=== PATIENT | male | born 1970 | race Hispanic/Latino ===

== ENCOUNTER 2022-07-25 19:59 | Emergency (ER) | payer BC ==
--- NOTE | 2022-07-25 23:00 | XRay Report ---
Abdomen single view INDICATION: Abdominal pain IMPRESSION: 10 x 5 cm gas-filled foreign body projects within the upper rectum. Signer Name: Grant Romo MD Signed: 07/25/2022 10:55 PM Workstation Name: [employer]
[2022-07-25 23:26] LABS: Basophils % (Auto) 0.6 % (0.0-1.8); Eosinophils # (Auto) 0.2 K/mm3 (0.0-0.4); Eosinophils % (Auto) 2.7 % (0.0-4.3); Hematocrit 47.7 % (35.5-45.6); Hemoglobin 16.1 gm/dl (11.8-15.2); Lymphocytes # (Auto) 1.3 K/mm3 (1.2-5.4); Lymphocytes % (Auto) 18.1 % (13.4-35.0); Mean Corpuscular HGB Conc 34 % (32-34); Mean Corpuscular Volume 87 fl (84-94); Monocytes # (Auto) 0.6 K/mm3 (0.0-0.8); Monocytes % (Auto) 8.9 % (0.0-7.3); Platelet Count 267 K/mm3 (140-440); Red Blood Count 5.47 M/mm3 (3.65-5.03); Red Cell Distribution Width 13.1 % (13.2-15.2)
[2022-07-25 23:32] LABS: BUN/Creatinine Ratio 12; Blood Urea Nitrogen 11 mg/dL (9-20); Calcium 9.7 mg/dL (8.4-10.2); Hemolysis Index 17
--- NOTE | 2022-07-26 07:13 | Emergency Department Report ---
HPI - General Chief Complaint: Rectal Pain Time Seen by Provider: 07/26/22 06:51 - HPI HPI: Room 19 The patient is a 51-year-old male present with chief complaint of foreign body in rectum. The patient states for the past 2 months he has had rectal bleeding bright red and dark red blood without rectal pain. The patient states 2 days ago he placed 2 or 3 tampon applicators in his rectum to "stop the bleeding." Patient states he's been unable to remove the applicators. Patient states his last bowel movement occurred 3 to 4 days ago. Patient states he normally has a bowel movement daily. Patient denies nausea vomiting. Patient states he has not used any laxatives ED Past Medical Hx - Past Medical History Previous Medical History?: Yes Hx GERD: Yes - Surgical History Past Surgical History?: Yes Additional Surgical History: left arm - Family History Family history: no significant - Social History Smoking Status: Never Smoker Substance Use Type: None (Denies illicit drug use) ED Review of Systems ROS: Stated complaint: RECTUM BLEEDING Other details as noted in HPI Constitutional: no symptoms reported Eyes: denies: eye pain ENT: denies: throat pain Respiratory: no symptoms reported Cardiovascular: denies: chest pain Endocrine: no symptoms reported Gastrointestinal: constipation. denies: nausea, vomiting Genitourinary: denies: dysuria Neurological: denies: headache Physical Exam - Physical Exam Vital Signs: Vital Signs 07/25/22 07/26/22 22:25 06:43 Temperature 98.3 F Pulse Rate 94 H Respiratory 18 18 Rate Blood Pressure 142/99 O2 Sat by Pulse 97 100 Oximetry Physical Exam: GENERAL: The patient is well-developed well-nourished male lying on stretcher not appearing to be in acute distress. [] HEENT: Normocephalic. Atraumatic. Extraocular motions are intact. Patient has moist mucous membranes. NECK: Supple. Trachea midline CHEST/LUNGS: Clear to auscultation. There is no respiratory distress noted. HEART/CARDIOVASCULAR: Regular. There is no tachycardia. There is no gallop rub or murmur. ABDOMEN: Abdomen is soft, with mild right upper quadrant and right lower quadran t discomfort to palpation. There is no rebound or guarding. Patient has normal bowel sounds. There is no abdominal distention. SKIN: There is no rash. There is no edema. There is no diaphoresis. NEURO: The patient is awake, alert, and oriented. The patient is cooperative. The patient has no focal neurologic deficits. The patient has normal speech MUSCULOSKELETAL: There is no evidence of acute injury. RECTAL: Foreign object palpated during ANGIE however I am unable to grab and remove it. ED Course Vital Signs 07/25/22 07/26/22 22:25 06:43 Temperature 98.3 F Pulse Rate 94 H Respiratory 18 18 Rate Blood Pressure 142/99 O2 Sat by Pulse 97 100 Oximetry - Consultations Consultation #1: 07/26/22 07:17 GI paged 07/26/22 07:36 Case discussed with single wire saw operator Dr. Naqvi-we will evaluate/call Endo team ED Medical Decision Making - Lab Data Result diagrams: 07/25/22 22:53 07/25/22 22:53 - Differential Diagnosis Foreign body in rectum Critical care attestation.: If time is entered above; I have spent that time in minutes in the direct care of this critically ill patient, excluding procedure time. ED Disposition Clinical Impression: Rectal foreign body Disposition: 01 HOME / SELF CARE / HOMELESS Is pt being admited?: No Does the pt Need Aspirin: No Condition: Stable Instructions: Rectal Foreign Body Removal, Care After Additional Instructions: Return to the emergency department should you develop worsening symptoms, inability to tolerate food or liquids, high fever or any other concerns Referrals: KATHERYN EAST MD [Primary Care Provider] - 3-5 Days Time of Disposition: 12:51
[2022-07-26] MEDS ORDERED: SODIUM CHLORIDE 0.9% 1000 ML 1,000 ML ONE (09:35)
[2022-07-26] MEDS ORDERED: MIDAZOLAM 2 MG/2 ML INJ ONE (09:35)
[2022-07-26] MEDS ORDERED: fentaNYL 100 MCG/2 ML INJ ONE (09:37)
[2022-07-26] MEDS ORDERED: EPINEPHrine 1 MG/10 ML SYRINGE ONE (09:46)
[2022-07-26] MEDS ORDERED: fentaNYL 100 MCG/2 ML INJ IV ONE (10:13)
[2022-07-26] MEDS ORDERED: MIDAZOLAM 2 MG/2 ML INJ IV ONE (10:13)
[2022-07-26] MEDS ORDERED: ONDANSETRON 4 MG/2 ML INJ ONE (10:34)
[2022-07-26] MEDS ORDERED: ONDANSETRON 4 MG/2 ML INJ IV ONE (10:36)
--- NOTE | 2022-07-26 11:21 | Gastroenterology Consultation ---
History of Present Illness - Reason for Consult Consult date: 07/26/22 foreign body in rectum Requesting physician: MAX PAGAN - History of Present Illness The patient is a 51 yo male who presented with foreign body in rectum. He reports hematochezia for a couple months and was given advice to use tampons to stop the bleeding. he inserted 2-3 tampons with applicators in rectum that has now been retained in rectum for a couple days. Mild lower abd discomfort/c ramping. ER unable to remove at bedside. Past History Past Medical History: No medical history Past Surgical History: No surgical history Social history: no significant social history Medications and Allergies Allergies Allergy/AdvReac Type Severity Reaction Status Date / Time hydromorphone [From Dilaudid] Allergy Shortness Verified 07/26/22 09:41 of Breath promethazine [From Phenergan] Allergy Shortness Verified 07/26/22 09:41 of Breath Active Meds: Reviewed/updated patient's home and current medications Review of Systems - Review of Systems All systems: negative (per HPI) Exam - Constitutional Vital Signs: Temp Pulse Resp BP Pulse Ox 98 F 82 16 146/92 98 07/26/22 10:00 07/26/22 10:00 07/26/22 10:00 07/26/22 10:00 07/26/22 10:00 General appearance: no acute distress - EENT Eyes: PERRL - Respiratory Respiratory effort: normal Respiratory: bilateral: CTA - Cardiovascular Rhythm: regular Heart Sounds: Present: S1 & S2 - Gastrointestinal General gastrointestinal: Present: soft, non-tender, non-distended - Neurologic Neurological: alert and oriented x3 - Psychiatric Psychiatric: appropriate mood/affect - Labs CBC & Chem 7: 07/25/22 22:53 07/25/22 22:53 Lab Results: Laboratory Results - last 24 hr 07/25/22 07/25/22 22:53 22:53 WBC 7.3 RBC 5.47 H Hgb 16.1 H Hct 47.7 H MCV 87 MCH 29 MCHC 34 RDW 13.1 L Plt Count 267 Lymph % (Auto) 18.1 [place] % (Auto) 8.9 H Eos % (Auto) 2.7 Baso % (Auto) 0.6 Lymph # (Auto) 1.3 [place] # (Auto) 0.6 Eos # (Auto) 0.2 Baso # (Auto) 0.0 Seg Neutrophils % 69.7 Seg Neutrophils # 5.1 Sodium 140 Potassium 4.0 Chloride 104.1 Carbon Dioxide 25 Anion Gap 15 BUN 11 Creatinine 0.9 Estimated GFR > 60 BUN/Creatinine Ratio 12 Glucose 112 H Calcium 9.7 - Imaging X-ray: report reviewed Assessment and Plan 1. Foreign body in rectum - will plan urgent bed side flex sig with foreign body removal
--- NOTE | 2022-07-26 11:27 | Operative Report ---
Operative Report Operative Report: Flexible Sigmoidoscopy with Foreign Body Removal Date of procedure: 07/26/2022 Endoscopist: Seb Naqvi Pre-op diagnosis/indication: Foreign body in rectum Post-op diagnosis: Same MEDICATIONS: Fentanyl 25 mcg, versed 2 mg IV COMPLICATIONS: No immediate complications ESTIMATED BLOOD LOSS: None DESCRIPTION OF PROCEDURE: After consent was obtained, the patient was placed in the left lateral decubitis position. The olympus colonoscope was inserted into the rectum and advanced to the sigmoid colon. The patient tolerated the procedure well. The views of the mucosa were adequate for diagnostic/therapeutic purposes. The patients vital signs were monitored continuously throughout the procedure. FINDINGS: There was brown solid stool in the rectum and sigmoid colon. Internal hemorrhoids were visualized on retro-flexion view. There were 3 tampons with applicators in the proximal and mid rectum. All parts were removed using combination for forceps, snare and manual removal. IMPRESSION: 1. Foreign body in rectum s/p removal RECOMMENDATIONS: -can be discharged home from GI stand point.
[2022-07-26 16:51] VITALS: BP 102/72
== END 2022-07-26 16:15 | disposition home or self-care (01) ==
LOC: ED 19:59
DX: T18.5XXA Foreign body in anus and rectum, initial encounter (principal); X58.XXXA Exposure to other specified factors, initial encounter; Y93.89 Activity, other specified; Y92.89 Other specified places as the place of occurrence of the external cause; Y99.8 Other external cause status
CPT/HCPCS: 36415; 45332; 74018; 80048; 85025; 96361; 96374; 99284; J2250; J2405; J3010; J7030; 96375; 96376; 99283; J0171